=== PATIENT | male | born 2000 | race Caucasian/White ===

== ENCOUNTER 2021-04-25 21:47 | Emergency (ER) | payer SELFPAY ==
[~2021-04-25] VITALS: Ht 177.8 cm; Wt 138.0 kg
[2021-04-25 22:23] LABS: BASO # 0.1 x10^3/uL (0.0-0.2); BASO % 1 % (0-3); EOS % 0 % (0-3); HEMATOCRIT 40.8 % (39.0-53.0); HEMOGLOBIN 13.3 g/dL (13.0-17.5); LYMPH # 2.9 x10^3/uL (1.0-4.8); LYMPH % 23 % (24-48); MEAN CORPUSCULAR HEMOGLOBIN 27 pg (25-35); MEAN CORPUSCULAR HGB CONC 33 g/dL (31-37); MEAN CORPUSCULAR VOLUME 82 fL (79-100); MONO # 0.9 x10^3/uL (0.0-1.1); MONO % 7 % (0-9); NEUT # 8.7 x10^3/uL (1.8-7.7); NEUT % 69 % (31-73); PLATELET COUNT 263 x10^3/uL (140-400); RED BLOOD COUNT 4.99 x10^6/uL (4.30-5.70); RED CELL DISTRIBUTION WIDTH 13.9 % (11.5-14.5); WHITE BLOOD COUNT 12.5 x10^3/uL (4.0-11.0)
[2021-04-25] MEDS ORDERED: CONTRAST GIVEN. MC PRN (22:30)
[2021-04-25] MEDS ORDERED: IV NORMAL SALINE 1000ML BAG 1,000 ML IV ONE (22:30)
[2021-04-25] MEDS ORDERED: IOHEXOL 300 MG/ML 100ML VIAL. IV ONE (22:30)
[2021-04-25 22:31] LABS: CALCIUM 9.1 mg/dL (8.5-10.1); CREATININE 0.8 mg/dL (0.7-1.3); GFR 120.9; POTASSIUM 3.7 mmol/L (3.5-5.1)
[2021-04-25 22:35] LABS: ALBUMIN 3.5 g/dL (3.4-5.0); ALBUMIN/GLOBULIN RATIO 0.8 (1.0-1.7); MAGNESIUM 2.3 mg/dL (1.8-2.4); TOTAL BILIRUBIN 0.4 mg/dL (0.2-1.0); TOTAL PROTEIN 7.8 g/dL (6.4-8.2)
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
[2021-04-25] MEDS ORDERED: ORPH100T PO (23:49)
[2021-04-25 23:54] VITALS: BP 134/73
[2021-04-26 00:05] LABS: BILIRUBIN,URINE NEGATIVE (NEG); CLARITY,URINE CLEAR; COLOR,URINE YELLOW; NITRITE,URINE NEGATIVE (NEG); PH,URINE 5.5 (<5.0-8.0); PROTEIN,URINE NEGATIVE (NEG-TRACE)
[2021-04-26 00:15] LABS: BACTERIA,URINE 0 /HPF (0-FEW); RBC,URINE 0 /HPF (0-2); WBC,URINE 0 /HPF (0-4)
[2021-04-26] MEDS ORDERED: IBUPROFEN 200 MG TABLET. PO ONE (01:00)
== END 2021-04-26 00:27 | disposition home or self-care (01) ==
LOC: ER 21:47
DX: S30.1XXA Contusion of abdominal wall, initial encounter (principal); S20.219A Contusion of unspecified front wall of thorax, initial encounter; R91.1 Solitary pulmonary nodule; Z88.0 Allergy status to penicillin; V89.2XXA Person injured in unspecified motor-vehicle accident, traffic, initial encounter; Y93.89 Activity, other specified; Y92.89 Other specified places as the place of occurrence of the external cause; Y99.8 Other external cause status
CPT/HCPCS: 36415; 70450; 71260; 72125; 74177; 80053; 81001; 83690; 83735; 85025; 96360; 99285; J7030; Q9967

== ENCOUNTER 2022-01-20 05:06 | Emergency (ER) | payer SELFPAY ==
[~2022-01-20] VITALS: Ht 177.8 cm; Wt 137.5 kg
[~2022-01-20 05:06] MED LIST: ORPH100T PO
[2022-01-20] MEDS ORDERED: ACETAMINOPHEN 500 MG TABLET PO ONE (06:00)
--- NOTE | 2022-01-20 06:09 | EKG ---
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
[2022-01-20 06:14] LABS: INFLUENZA A PATIENT NEGATIVE (NEGATIVE); INFLUENZA B PATIENT NEGATIVE (NEGATIVE)
[2022-01-20] MEDS ORDERED: DEXAMETHASONE SOD PHOS 4 MG/ML VIAL IM ONE (07:15)
[2022-01-20] MEDS ORDERED: KETOROLAC 30 MG/ML VIAL. IM ONE (07:15)
[2022-01-20] MEDS ORDERED: AZIT250T PO (07:22)
[2022-01-20] MEDS ORDERED: IBUP-1060 PO (07:22)
--- NOTE | 2022-01-20 07:24 | PHYS DOC ---
Past Medical History Past Medical History: No Pertinent History Past Surgical History: No Surgical History Smoking Status: Current Every Day Smoker Additional Information: VAPES Alcohol Use: None Drug Use: None Adult General Chief Complaint Chief Complaint: FLU SYMPTOM HPI HPI Patient is a 21 year old male with fever and sore throat that been present for the last 2 or 3 days. The patient has had pain with swallowing, he has been able to tolerate liquids but not solids. He has not had any chest pain, shortness of breath though he has had a minimal cough. No productivity to the cough. He denies any headache or confusion, no nausea vomiting or abdominal pain. No sick contacts that he is aware of. Review of Systems Review of Systems Constitutional: Reports fever at home Eyes: Denies change in visual acuity or eye pain HENT: Reports sore throat Respiratory: Denies shortness of breath Cardiovascular: Denies chest pain GI: Denies abd pain : Denies dysuria Musculoskeletal: Denies back or extremity injury Integument: Denies rash or skin lesions Neurologic: Denies headache, focal weakness or sensory changes All other systems were reviewed and found to be within normal limits, except as documented in this note. Current Medications Current Medications Current Medications Medications (Trade) Dose Ordered Sig/Salty Start Time Stop Time Status Last Admin Dose Admin Acetaminophen (Tylenol) 1,000 mg 1X ONCE 01/20/22 06:00 01/20/22 06:01 DC 01/20/22 05:42 1,000 MG Dexamethasone Sodium Phosphate (Decadron) 10 mg 1X ONCE 01/20/22 07:15 01/20/22 07:16 UNV Ketorolac Tromethamine (Toradol 30mg Vial) 30 mg 1X ONCE 01/20/22 07:15 01/20/22 07:16 UNV Allergies Allergies Allergies Coded Allergies Type Severity Reaction Last Updated Verified Penicillins Allergy Intermediate 04/25/21 Yes Physical Exam Physical Exam Constitutional: Well developed, well nourished, no acute distress, non-toxic appearance. HENT: Normocephalic, atraumatic, bilateral external ears normal, mucosa moist, erythema of the posterior oropharynx without exudate or edema, nose normal. Eyes: EOMI, conjunctiva normal, no discharge. Neck: Normal range of motion, supple, no stridor, no meningeal signs. Cardiovascular: Regular rate and rhythm Lungs & Thorax: Bilateral breath sounds clear to auscultation Abdomen: Soft, no tenderness or obvious masses Skin: Warm, dry, no erythema, no rash. Extremities: No tenderness, no cyanosis, no clubbing, ROM intact, no edema. Neurologic: Alert and oriented, normal motor function, normal sensory function, no focal deficits noted. Psychologic: Affect normal, judgement normal, mood normal. Current Patient Data Vital Signs Vital Signs Date Time Temp Pulse Resp B/P (MAP) Pulse Ox O2 Delivery O2 Flow Rate FiO2 01/20/22 05:13 101.5 121 17 135/85 (102) 94 Room Air 101.5 Lab Values Laboratory Tests Test 01/20/22 05:47 Influenza Type A Antigen Negative (NEGATIVE) Influenza Type B Antigen Negative (NEGATIVE) SARS-CoV-2 Antigen (Rapid) Negative (NEGATIVE) EKG EKG [] Radiology/Procedures Radiology/Procedures [] Course & Med Decision Making Course & Med Decision Making Pertinent Labs and Imaging studies reviewed. (See chart for details) [] This is a 21-year-old male with pharyngitis. Influenza and Covid screens were both negative. Patient was given 10 of Decadron and 30 of Toradol IM in the ED. We will discharge him with prescriptions for Zithromax as he has a penicillin allergy, also a prescription for Motrin to be used 3-4 times per day, he is stable for discharge. Dragon Disclaimer Dragon Disclaimer This electronic medical record was generated, in whole or in part, using a voice recognition dictation system. Departure Departure Impression: Primary Impression: Pharyngitis Disposition: HOME / SELF CARE / HOMELESS Condition: STABLE Referrals: NO PCP (PCP) Patient Instructions: Viral and Bacterial Pharyngitis Scripts Ibuprofen (IBUPROFEN) 800 Mg Tablet 800 MG PO PRN TID PRN for PAIN, #30 TAB take with food or milk to avoid upsetting stomach Prov: NISHA SIMMONS MD 01/20/22 Azithromycin (ZITHROMAX) 250 Mg Tablet 1 PKG PO UD for 5 Days, #6 TAB Take 2 tablets on day 1, 1 tablet each day on days 2 through 5. Prov: NISHA SIMMONS MD 01/20/22 NISHA SIMMONS MD Jan 20, 2022 07:24
[2022-01-20] MEDS ORDERED: ONDANSETRON ODT 4 MG TAB.RAPDIS. ONE (07:45)
[2022-01-20 07:48] VITALS: BP 123/58
== END 2022-01-20 07:50 | disposition home or self-care (01) ==
LOC: ER 05:06
DX: J02.9 Acute pharyngitis, unspecified (principal); R50.9 Fever, unspecified; Z20.822 Contact with and (suspected) exposure to COVID-19; F17.200 Nicotine dependence, unspecified, uncomplicated
CPT/HCPCS: 87428; 93005; 96372; 99284; J1100; J1885